=== PATIENT | male | born 1975 | race African-American/Black ===

== ENCOUNTER 2018-03-31 13:14 | Emergency (ER) | payer OTHER ==
[~2018-03-31] VITALS: Ht 188 cm; Wt 108.9 kg
[2018-03-31 13:26] VITALS: BP 112/71
[2018-03-31] MEDS ORDERED: VALACYCLOVIR500 MG ORAL (13:30)
--- NOTE | 2018-03-31 13:41 | NUR ---
low lip swelling, itching, redness x 3 days; attempted to relieve sym with Claritin Reports no dyspnea or SOB or swallowing problem. Reports no use of med or products. Patient started taking Valtrex 1000mg daily x 1 week; hx of Valtrex use.
--- NOTE | 2018-03-31 13:57 | Emergency Room Report ---
History of Present Illness General Chief Complaint: Allergic Reaction Source: Patient Present Illness HPI 42-year-old male with history of eczema and seasonal allergies here complaining of 3 days of swelling of lips without anaphylaxis. Patient reports he traveled to [place] and he noticed that his lips are very chapped, he started taking Valtrex as he occasionally had outbreaks of cold sore. Patient has been taking Valtrex for years. After landing in [place] started noted swelling in his lips without closing of his throat. Denies any exposure to new foods, spaces, new medication. Patient does consume a lot of spicy food. Denies smoking. Patient has been taking Claritin with improvement however the swelling comes back. Denies SOB, chest pain, palpitations, rash on the rest of body. Patient denies pain in his lips. Patient denies exposure to new sexual partner. Allergies: Coded Allergies: No Known Allergies (Unverified , 03/31/18) Patient History Past Medical History: see triage record Past Surgical History: unable to obtain Pertinent Family History: none Immunizations: UTD Reviewed Nursing Documentation: PMH: Agreed; PSxH: Agreed Nursing Documentation-PMH Past Medical History: No History, Except For Review of Systems All Other Systems: negative except mentioned in HPI Physical Exam Vital Signs Date Time Temp Pulse Resp B/P (MAP) Pulse Ox O2 Delivery O2 Flow Rate FiO2 03/31/18 13:26 64 19 Room Air 03/31/18 13:26 98.1 112/71 99 Sp02 EP Interpretation: reviewed, normal General Appearance: normal inspection, well appearing, no apparent distress, alert Head: normocephalic Eyes: bilateral eye normal inspection, bilateral eye PERRL ENT: hearing grossly normal, normal pharynx, normal voice, uvula midline, other - angioedema Neck: normal inspection, full range of motion, supple Respiratory: normal inspection, lungs clear, no rhonchi, no retraction, no wheezing Cardiovascular #1: normal inspection, no edema, no gallop, no murmur Gastrointestinal: normal inspection, soft, no mass Rectal: deferred Genitourinary: deferred Musculoskeletal: normal inspection, digits/nails normal Neurologic: normal inspection, alert, oriented x3 Psychiatric: normal inspection, judgement/insight normal Skin: normal color, no rash, warm/dry, well hydrated Lymphatic: normal inspection, no adenopathy, axilla node tender (R) Medical Decision Making PA Attestation all diagnosis and treatment plans are reviewed and discussed with my supervising physician Dr. Banegas Diagnostic Impression: Primary Impression: Allergic reaction Additional Impression: Angio-edema ER Course 42-year-old male with history of eczema and seasonal allergies here complaining of 3 days of swelling of lips without anaphylaxis. Patient reports he traveled to [place] and he noticed that his lips are very chapped, he started taking Valtrex as he occasionally had outbreaks of cold sore. Patient has been taking Valtrex for years. After landing in [place] started noted swelling in his lips without closing of his throat. Denies any exposure to new foods, spaces, new medication. Patient does consume a lot of spicy food. Denies smoking. Patient has been taking Claritin with improvement however the swelling comes back. Denies SOB, chest pain, palpitations, rash on the rest of body. Patient denies pain in his lips. Patient denies exposure to new sexual partner. Ddx considered but are not limited to angioedema, anaphylaxis, allergic reaction Vital signs: are WNL, pt. is afebrile H&PE are most consistent with angioedema due to allergic reaction ORDERS: Medrol Dosepak, loratadine, Epi pen for emergencies ED INTERVENTIONS: None required at this time. DISCHARGE: At this time pt. is stable for d/c to home. Will provide printed patient care instructions, and any necessary prescriptions. Care plan and follow up instructions have been discussed with the patient prior to discharge. use EpiPen only if anaphylaxis and difficulty breathing, difficulty breathing return to the emergency room. Primary care provider order allergy testing to not expose herself to new allergens do not eat spicy food stop taking valtrex Last Vital Signs Date Time Temp Pulse Resp B/P (MAP) Pulse Ox O2 Delivery O2 Flow Rate FiO2 03/31/18 13:26 98.1 64 19 112/71 99 Room Air Disposition: HOME, SELF-CARE Condition: Stable Scripts Epinephrine (Epipen 2-Doug) 0.3 Mg/0.3 Ml Auto.injct 0.3 MG IM NEEDED, #2 EA Prov: Silvio Mccracken 03/31/18 Loratadine (CLARITIN) 10 Mg Capsule 10 MG ORAL DAILY, #30 CAP Prov: Silvio Mccracken 03/31/18 Methylprednisolone (Methylprednisolone*) 4MG Dspk 4 MG ORAL DIRECTED for 6 Days, #21 EA 0 Refills Day 1: Two tablets before breakfast, one after lunch, one after dinner, and two at bedtime. If started late in the day, take all six tablets at once or divide into two or three doses, unless otherwise directed by prescriber. Day 2: One tablet before breakfast, one after lunch, one after dinner, and two at bedtime Day 3: One tablet before breakfast, one after lunch, one after dinner, and one at bedtime Day 4: One tablet before breakfast, one after lunch, and one at bedtime Day 5: One tablet before breakfast and one at bedtime Day 6: One tablet before breakfast Prov: Silvio Mccracken 03/31/18 Patient Instructions: Allergies, Angioedema, [id number], Drug Allergy Additional Instructions: take the steroids as directed, use the EpiPen only if anaphylaxis cannot breathe , follow with the primary care provider for allergy testing Silvio Mccracken Mar 31, 2018 13:57
[2018-03-31] MEDS ORDERED: EPIPEN 2-P0.3 MG/0.3 IM (14:00)
[2018-03-31] MEDS ORDERED: PREDNISONE10 MG ORAL (14:00)
[2018-03-31] MEDS ORDERED: MEDROL DOSEPAK4 MG ORAL (14:00)
[2018-03-31] MEDS ORDERED: CLARITIN10 M2 ORAL (14:00)
[2018-03-31 14:14] VITALS: BP 112/71
--- NOTE | 2018-03-31 14:15 | NUR ---
Patient is being discharged from medical care. Awake, alert and oriented x4. After care instructions, were given. Patient verbalized understanding of After care instructions. All medical devices such as ID band were removed. Patient ambulated out with all personal belongings with steady gait.
== END 2018-03-31 14:15 | disposition home or self-care (01) ==
LOC: EMR 13:59
DX: T78.40XA Allergy, unspecified, initial encounter (principal); X58.XXXA Exposure to other specified factors, initial encounter; T78.3XXA Angioneurotic edema, initial encounter
CPT/HCPCS: 99283

== ENCOUNTER 2018-04-27 16:15 | Emergency (ER) | payer OTHER ==
[~2018-04-27] VITALS: Ht 190.5 cm; Wt 108.9 kg
[~2018-04-27 16:15] MED LIST: CLARITIN10 M2 ORAL; EPIPEN 2-P0.3 MG/0.3 IM; MEDROL DOSEPAK4 MG ORAL; PREDNISONE10 MG ORAL; VALACYCLOVIR500 MG ORAL
[2018-04-27 16:19] VITALS: BP 124/71
[2018-04-27] MEDS ORDERED: NKM (16:21)
--- NOTE | 2018-04-27 17:07 | Emergency Room Report ---
History of Present Illness General Chief Complaint: Allergic Reaction Source: Patient, Medical Record Present Illness HPI 30-year-old male presents to the emergency department complaining of facial rash and she states is itchy 2 days it has been progressive. Patient also reports swelling intermittently in his lower lip. Patient with history of similar symptoms approximately one month ago which was treated as an allergic reaction. Patient has not followed up with bank cashier since that visit. Pt. denies fevers, chills or swollen tender lymph nodes. Denies lesions/rashes elsewhere on the body. Denies new medications or body washes or creams. Denies swelling of the tongue , throat or airway. Denies wheezing, or shortness of breath. Denies recent travel, recent illness or ill contacts. Denies blisters , oral lesions, or sloughing of the skin. Pt. reports his sx were previously kept under control with topical Elidel a non-steroidal cream and is requesting refill. 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 Review of Systems All Other Systems: negative except mentioned in HPI Physical Exam Vital Signs Date Time Temp Pulse Resp B/P (MAP) Pulse Ox O2 Delivery O2 Flow Rate FiO2 04/27/18 16:19 98.1 65 18 124/71 98 Room Air Sp02 EP Interpretation: reviewed, normal General Appearance: no apparent distress, alert, GCS 15, non-toxic Head: normocephalic, atraumatic Eyes: bilateral eye normal inspection, bilateral eye PERRL ENT: hearing grossly normal, normal pharynx, normal voice, uvula midline Neck: full range of motion, other - no stridor Respiratory: chest non-tender, lungs clear, normal breath sounds, speaking full sentences Cardiovascular #1: regular rate, rhythm, no edema Musculoskeletal: back normal, gait/station normal, normal range of motion, non- tender Neurologic: alert, oriented x3, responsive, motor strength/tone normal, sensory intact, speech normal, grossly normal Psychiatric: judgement/insight normal Skin: normal color, warm/dry, well hydrated, rash - erythematous papules on the forehead, upper lip, and nosesome coalesce , no blisters or vessicles Lymphatic: no adenopathy Medical Decision Making PA Attestation Dr. quintana is my supervising Physician whom patient management has been discussed with. Diagnostic Impression: Primary Impression: Allergic reaction Qualified Codes: T78.40XA - Allergy, unspecified, initial encounter ER Course 30-year-old male presents to the emergency department complaining of facial rash and she states is itchy 2 days it has been progressive. Patient also reports swelling intermittently in his lower lip. Patient with history of similar symptoms approximately one month ago which was treated as an allergic reaction. Patient has not followed up with bank cashier since that visit. Pt. denies fevers, chills or swollen tender lymph nodes. Denies lesions/rashes elsewhere on the body. Denies new medications or body washes or creams. Denies swelling of the tongue , throat or airway. Denies wheezing, or shortness of breath. Denies recent travel, recent illness or ill contacts. Denies blisters , oral lesions, or sloughing of the skin. Pt. reports his sx were previously kept under control with topical Elidel a non-steroidal cream and is requesting refill. Ddx considered but are not limited to cellulitis, allergic reaction, angio edema , abscess Vital signs: are WNL, pt. is afebrile H&PE are most consistent with allergic reaction - no evidence of impending airway compromise or anaphylaxis. ORDERS: none required at this time, the diagnosis is clinical ED INTERVENTIONS: - Prednisone 60mg PO I discussed with this patient that it is imperative that he follow up with an bank cashier to have allergy testing performed as clearly this type of reaction is becoming habitual and the reaction has a potential to become worse each time with exposure. Discussed with patient that the treatment today with conservative medications is a temporary Band-Aid his symptoms may return after completion of treatment. DISCHARGE: At this time pt. is stable for d/c to home. Will provide printed patient care instructions, and any necessary prescriptions. Care plan and follow up instructions have been discussed with the patient prior to discharge. Last Vital Signs Date Time Temp Pulse Resp B/P (MAP) Pulse Ox O2 Delivery O2 Flow Rate FiO2 04/27/18 16:30 65 18 Room Air 04/27/18 16:19 98.1 124/71 98 Disposition: HOME, SELF-CARE Condition: Stable Scripts Diphenhydramine Hcl (BENADRYL ALLERGY) 25 Mg Tablet 25 MG PO Q6HR, #20 TAB Prov: Yani Chapman 04/27/18 Pimecrolimus (ELIDEL) 30 Gm Cream..g. 1 APPLIC TP BID, #30 GM Prov: Yani Chapman 04/27/18 Methylprednisolone (Methylprednisolone*) 4MG Dspk 4 MG ORAL DIRECTED for 6 Days, #21 EA 0 Refills Day 1: Two tablets before breakfast, one after lunch, one after dinner, and two at bedtime. If started late in the day, take all six tablets at once or divide into two or three doses, unless otherwise directed by prescriber. Day 2: One tablet before breakfast, one after lunch, one after dinner, and two at bedtime Day 3: One tablet before breakfast, one after lunch, one after dinner, and one at bedtime Day 4: One tablet before breakfast, one after lunch, and one at bedtime Day 5: One tablet before breakfast and one at bedtime Day 6: One tablet before breakfast Prov: Yani Chapman 04/27/18 Patient Instructions: Allergies, Rash Additional Instructions: Take medications as directed. Follow up with a Primary Care Provider in 3-5 days, even if your symptoms have resolved. FOR ALLERGY TESTING and DERMATOLOGY Referral --Please review list of primary care clinics, if you do not already have a primary care provider Return sooner to ED if new symptoms occur, or current symptoms become worse. - Please note that this Emergency Department Report was dictated using [employer] pl[employer] technology software, occasionally this can lead to erroneous entry secondary to interpretation by the dictation equipment. Yani Chapman Apr 27, 2018 17:07
[2018-04-27] MEDS ORDERED: BENADRYL ALLERG25 M1 PO (17:13)
[2018-04-27] MEDS ORDERED: ELIDEL TP (17:13)
[2018-04-27] MEDS ORDERED: MEDROL DOSEPAK4 MG ORAL (17:13)
[2018-04-27 17:17] VITALS: BP 120/74
== END 2018-04-27 17:22 | disposition home or self-care (01) ==
LOC: EMR 17:21
DX: T78.40XA Allergy, unspecified, initial encounter (principal); X58.XXXA Exposure to other specified factors, initial encounter; R21 Rash and other nonspecific skin eruption
CPT/HCPCS: 99282; J7512